=== PATIENT | female | born 1985 | race Caucasian/White ===

== ENCOUNTER 2018-06-10 06:06 | Emergency (ER) | payer BC ==
[~2018-06-10] VITALS: Ht 162.6 cm; Wt 61.2 kg
[2018-06-10 06:29] VITALS: BP 89/58
[2018-06-10] MEDS ORDERED: cefTRIAXone SOD 1,000 MG VL IM ONE (07:45)
[2018-06-10] MEDS ORDERED: KETOROLAC TROMETH 60MG/2ML VIAL IM ONE (07:45)
== END 2018-06-10 08:17 | disposition home or self-care (01) ==
LOC: ER 06:06
DX: S91.332A Puncture wound without foreign body, left foot, initial encounter (principal); S90.822A Blister (nonthermal), left foot, initial encounter; L08.9 Local infection of the skin and subcutaneous tissue, unspecified; L03.116 Cellulitis of left lower limb; F17.210 Nicotine dependence, cigarettes, uncomplicated; W25.XXXA Contact with sharp glass, initial encounter; Y93.89 Activity, other specified; Y92.89 Other specified places as the place of occurrence of the external cause; Y99.8 Other external cause status
CPT/HCPCS: 10140; 73630; 96372; 99284; J0696; J1885; 10060

== ENCOUNTER 2019-01-11 06:07 | Emergency (ER) | payer BC ==
[~2019-01-11] VITALS: Ht 162.6 cm; Wt 59.0 kg
[2019-01-11 06:16] VITALS: BP 112/82
== END 2019-01-11 06:24 | disposition left against medical advice (07) ==
LOC: ER 06:07
DX: Z02.89 Encounter for other administrative examinations (principal); Z53.21 Procedure and treatment not carried out due to patient leaving prior to being seen by health care provider